=== PATIENT | female | born 1950 | race Caucasian/White ===

== ENCOUNTER 2017-06-20 13:39 | Emergency (ER) | payer SELFPAY ==
[~2017-06-20] VITALS: Ht 167.6 cm; Wt 90.3 kg
[2017-06-20] MEDS ORDERED: NAPROXEN500 MG PO (17:03)
[2017-06-20 18:03] VITALS: BP 157/71
== END 2017-06-20 18:05 | disposition home or self-care (01) ==
LOC: EME 13:39
DX: S93.401A Sprain of unspecified ligament of right ankle, initial encounter (principal); S40.012A Contusion of left shoulder, initial encounter; W19.XXXA Unspecified fall, initial encounter; Z87.891 Personal history of nicotine dependence
CPT/HCPCS: 71010; 73060; 73610; 99281; 99283; J1885

== ENCOUNTER 2017-08-06 21:39 | Inpatient (IN) | payer OTHER, MEDICARE ==
[~2017-08-06] VITALS: Ht 167.6 cm; Wt 89.8 kg
[~2017-08-06 21:39] MED LIST: NAPROXEN500 MG PO
[2017-08-06 22:12] LABS: HEMATOCRIT 36.3 % (36.0-46.0); MCH 30.7 PG (29.0-34.0); MCHC 33.6 G/DL (30.0-36.0); MCV 91.2 FL (83-99); MEAN PLAT.VOLUME 10.1 uM^3 (9.5-12.4); PLATELET COUNT 224 K/uL (156-360); RBC DIS.WIDTH-CV 13.3 % (11.8-14.6); RED BLOOD COUNT 3.98 M/uL (3.80-5.20); WHITE BLOOD COUNT 9.3 K/uL (4.1-10.2)
[2017-08-06 22:24] LABS: CHLORIDE 101 mEq/L (99-109); POTASSIUM 4.4 mEq/L (3.7-5.4); SODIUM 138 mEq/L (136-147)
[2017-08-06 22:26] LABS: GLUCOSE 180 mg/dL (70-99)
[2017-08-06 22:28] LABS: ANION GAP 13 MEQ/L (2-14); TOTAL BILIRUBIN 0.3 mg/dL (0.0-1.0)
[2017-08-06 22:30] LABS: ALKALINE PHOSPHATASE 39 IU/L (3-129); GFR ESTIMATE (CALCULATED) 15 mL/min/
[2017-08-06 22:31] LABS: UREA NITROGEN (BUN) 71 mg/dL (9-23)
[2017-08-06 23:42] LABS: ADD MIUA? YES; BILIRUBIN NEGATIVE; BLOOD SMALL; COLOR YELLOW ((YELLOW)); GLUCOSE (STRIP) 50; KETONES NEGATIVE; LEUKOCYTES LARGE; NITRITE NEGATIVE; PROTEIN (STRIP) >=500; SPECIFIC GRAVITY 1.018 (1.000-1.030); UROBILINOGEN 0.2 MG/DL (0.2-1.0)
[2017-08-07] VITALS (7 sets, daily range): BP systolic 143–206; BP diastolic 57–93
[2017-08-07 00:08] LABS: BACTERIA 2+ /HPF; CASTS PRESENT /LPF; CRYSTALS NONE SEEN; UCUL ADDED? YES; WHITE BLOOD CELLS TNTC /HPF (0-5)
[2017-08-07 00:09] LABS: EPITHELIAL CELLS 3+ /HPF
[2017-08-07 00:10] LABS: TROP-I INTERPRETATION NEGATIVE; TROPONIN-I 0.01 ng/mL (0.0-0.30)
[2017-08-07 00:14] LABS: HYALINE CASTS 0-5 /LPF; MUCUS 1+ /LPF
[2017-08-07 06:48] LABS: POINT-OF-CARE METER ID UU14117124
[2017-08-07 09:02] LABS: MCH 29.6 PG (29.0-34.0); MCHC 31.9 G/DL (30.0-36.0); MCV 92.7 FL (83-99); MEAN PLAT.VOLUME 10.4 uM^3 (9.5-12.4); PLATELET COUNT 211 K/uL (156-360); RBC DIS.WIDTH-CV 13.2 % (11.8-14.6); RED BLOOD COUNT 3.99 M/uL (3.80-5.20); WHITE BLOOD COUNT 7.9 K/uL (4.1-10.2)
[2017-08-07 09:26] LABS: ANION GAP 11 MEQ/L (2-14); CHLORIDE 104 MEQ/L (99-109); POTASSIUM 4.3 MEQ/L (3.7-5.4); SAMPLE HEMOLYSIS CHECK 0; SAMPLE ICTERIC CHECK 0; SAMPLE LIPEMIA CHECK 0; SODIUM 139 MEQ/L (136-147)
[2017-08-07 09:32] LABS: GFR ESTIMATE (CALCULATED) 18 mL/min/; GLUCOSE 148 mg/dL (70-99); UREA NITROGEN (BUN) 64 mg/dL (9-23)
[2017-08-07 12:23] LABS: POINT-OF-CARE METER ID UU14117124
[2017-08-07] MEDS ORDERED: LANTUS 10100 UNITS/ SC ×2 (15:50)
[2017-08-07] MEDS ORDERED: FENOFIBRIC ACI135 MG PO (15:51)
[2017-08-07] MEDS ORDERED: FAMOTIDINE20 MG PO (15:52)
[2017-08-07] MEDS ORDERED: RANITIDINE HCL150 MG PO (15:52)
[2017-08-07] MEDS ORDERED: INDERAL40 MG PO (15:52)
[2017-08-07] MEDS ORDERED: ATORVASTATIN CA10 MG PO (15:52)
[2017-08-07] MEDS ORDERED: ESCITALOPRAM OX20 MG PO (15:53)
[2017-08-07] MEDS ORDERED: VALSARTAN-HCTZ1 EAC1 PO (15:54)
[2017-08-07] MEDS ORDERED: DESYREL100 MG PO (15:54)
[2017-08-07] MEDS ORDERED: IRON325 M1 PO (15:55)
[2017-08-07] MEDS ORDERED: VITAMIN D31000 UNI2 PO (15:55)
[2017-08-07] MEDS ORDERED: VITAMIN B-12250 MCG PO (15:55)
[2017-08-07] MEDS ORDERED: COLACE100 MG PO (15:56)
[2017-08-07] MEDS ORDERED: ASPIR 8181 M1 PO (15:56)
[2017-08-07 16:54] LABS: POINT-OF-CARE METER ID UU14117124
[2017-08-07 20:38] LABS: C DIFF TOXIN NEGATIVE (NEGATIVE)
[2017-08-07 20:41] LABS: PROBE CHECK PASS; SPECIMEN PROCESSING CONTROL PASS
[2017-08-07 21:41] LABS: POINT-OF-CARE METER ID UU14117124
[2017-08-08 03:42] VITALS: BP 148/70
[2017-08-08 05:56] LABS: EOSINOPHIL (%) 3.1 % (0-5); EOSINOPHIL COUNT 0.1 K/uL (0-0.3); HEMATOCRIT 30.7 % (36.0-46.0); INSTRUMENT ABS NEUTROPHIL CT 2.8 K/uL; LYMPHOCYTE COUNT 0.9 K/uL (1.0-2.8); MCH 30.5 PG (29.0-34.0); MCHC 32.6 G/DL (30.0-36.0); MCV 93.6 FL (83-99); MONOCYTE (%) 8.4 % (3-12); MONOCYTE COUNT 0.4 K/uL (0-0.8); NEUTROPHIL (%) 66.3 % (45-76); NEUTROPHIL COUNT 2.8 K/uL (1.8-6.4); RBC DIS.WIDTH-CV 13.2 % (11.8-14.6); RBC DIS.WIDTH-SD 44.7 % (39-53); RED BLOOD COUNT 3.28 M/uL (3.80-5.20); WHITE BLOOD COUNT 4.2 K/uL (4.1-10.2)
[2017-08-08 06:09] LABS: ANION GAP 9 MEQ/L (2-14); CHLORIDE 103 MEQ/L (99-109); GFR ESTIMATE (CALCULATED) 20 mL/min/; POTASSIUM 4.1 MEQ/L (3.7-5.4); SAMPLE HEMOLYSIS CHECK 0; SAMPLE ICTERIC CHECK 0; SAMPLE LIPEMIA CHECK 0; SODIUM 135 MEQ/L (136-147); UREA NITROGEN (BUN) 62 mg/dL (9-23)
[2017-08-08 06:13] LABS: MEAN PLAT.VOLUME 10.6 uM^3 (9.5-12.4); PLAT.SUFFICIENCY DECREASED
[2017-08-08 06:14] LABS: PLATELET COUNT 114 K/uL (156-360)
[2017-08-08 06:23] LABS: GLUCOSE 315 mg/dL (70-99)
[2017-08-08 06:51] LABS: POINT-OF-CARE METER ID UU14208753
[2017-08-08 08:16] VITALS: BP 170/80
[2017-08-08 11:23] LABS: POINT-OF-CARE METER ID UU14208753
[2017-08-08 12:20] VITALS: BP 160/72
[2017-08-08 15:55] VITALS: BP 150/66
[2017-08-08 16:42] LABS: POINT-OF-CARE METER ID UU14208753
[2017-08-08 19:33] VITALS: BP 168/74
[2017-08-08 22:03] LABS: POINT-OF-CARE METER ID UU14208753
[2017-08-09 00:12] VITALS: BP 162/80
[2017-08-09 03:58] VITALS: BP 147/64
[2017-08-09 05:48] LABS: ANION GAP 8 MEQ/L (2-14); CHLORIDE 108 MEQ/L (99-109); GFR ESTIMATE (CALCULATED) 19 mL/min/; POTASSIUM 3.8 MEQ/L (3.7-5.4); SAMPLE HEMOLYSIS CHECK 0; SAMPLE ICTERIC CHECK 0; SAMPLE LIPEMIA CHECK 0; SODIUM 140 MEQ/L (136-147); UREA NITROGEN (BUN) 64 mg/dL (9-23)
[2017-08-09 05:50] LABS: GLUCOSE 113 mg/dL (70-99)
[2017-08-09 06:34] LABS: POINT-OF-CARE METER ID UU14188577
[2017-08-09 07:51] LABS: Estimated Average Glucose 180 mg/dL (70-123); HEMOGLOBIN A1c (GLYCOHEMOGLOB) 7.9 % HGB (Below 5.7)
[2017-08-09 08:34] VITALS: BP 154/66
== END 2017-08-09 12:54 | disposition home or self-care (01) | DRG 684 ==
LOC: EME 21:39 → 3EAST 08-07 03:42 → EDOF 08-07 03:42 → ENRESERV 08-07 03:47 → 3EAST 08-07 05:17
PROVIDERS: Emergency Medicine; Hospitalist; Internal Medicine Nephrology
DX: N17.9 Acute kidney failure, unspecified (principal); I12.9 Hypertensive chronic kidney disease with stage 1 through stage 4 chronic kidney disease, or unspecified chronic kidney disease; N18.4 Chronic kidney disease, stage 4 (severe); E86.0 Dehydration; E11.22 Type 2 diabetes mellitus with diabetic chronic kidney disease; D63.1 Anemia in chronic kidney disease; E11.65 Type 2 diabetes mellitus with hyperglycemia; E78.5 Hyperlipidemia, unspecified; E78.00 Pure hypercholesterolemia, unspecified; Z79.4 Long term (current) use of insulin; Z87.891 Personal history of nicotine dependence; E66.9 Obesity, unspecified; Z68.31 Body mass index [BMI] 31.0-31.9, adult; F32.9 Major depressive disorder, single episode, unspecified
CPT/HCPCS: 71020; 74176; 76770; 80048; 80053; 80069; 81003; 82948; 83036; 84484; 85025; 85027; 87086; 87493; 87506; 93005; 99281; 99285; J0744; J1644; J1815; J1956; J7030